=== PATIENT | male | born 1995 | race African-American/Black ===

== ENCOUNTER 2020-07-28 16:45 | Emergency (ER) | payer SELFPAY ==
[~2020-07-28] VITALS: Ht 177.8 cm; Wt 78.0 kg
[2020-07-28 17:34] LABS: HEMATOCRIT. 47.9 % (42.0-52.0); HEMOGLOBIN. 15.6 g/dL (14.0-18.0); MEAN CORPUSCULAR HEMOGLOBIN 30.8 pg (28.0-32.0); MEAN CORPUSCULAR VOLUME 94.4 fL (80.0-94.0); MEAN PLATELET VOLUME 9.3 fl (7.4-10.4); PLATELET 195 x1000/uL (130-400); RED BLOOD CELL COUNT 5.07 mill/uL (4.7-6.1); RED CELL DISTRIBUTION WIDTH 13.9 % (11.6-14.6)
[2020-07-28 17:41] LABS: CHLORIDE 103 mEq/L (98-107)
[2020-07-28 17:46] LABS: ETHANOL BLOOD < 10 mg/dL
[2020-07-28 18:04] LABS: PLATELET ESTIMATE NORMAL
[2020-07-28] MEDS ORDERED: DEXT 5%/0.9% NACL 1,000 ML IV ONE (18:15)
[2020-07-28] MEDS ORDERED: SODIUM CHLORIDE 0.9% 1,000 ML IV ONE (18:15)
[2020-07-28 19:24] LABS: CLARITY URINE CLEAR (CLEAR); COLOR URINE YELLOW (YELLOW); KETONES URINE NEGATIVE (NEGATIVE); LEUKOCYTE ESTERASE URINE NEGATIVE (NEGATIVE); NITRITE URINE NEGATIVE (NEGATIVE); OCCULT BLOOD URINE 1+ (NEGATIVE); PROTEIN URINE TRACE (NEGATIVE); SPECIFIC GRAVITY URINE 1.011 (1.005-1.030); UROBILINOGEN URINE 0.2 E.U./dL (0.2-1.0)
[2020-07-28 19:35] LABS: *BARBITURATES SCREEN URINE NEGATIVE (NEGATIVE); *BENZODIAZEPINES SCREEN URINE NEGATIVE (NEGATIVE)
[2020-07-28 19:36] LABS: *AMPHETAMINES SCREEN URINE NEGATIVE (NEGATIVE); *COCAINE SCREEN URINE NEGATIVE (NEGATIVE); METHADONE URINE SCREEN NEGATIVE (NEGATIVE); OPIATES URINE SCREEN NEGATIVE (NEGATIVE); PHENCYCLIDINE URINE SCREEN NEGATIVE (NEGATIVE)
[2020-07-28 19:37] LABS: CANNABINOID URINE SCREEN PRESUMTIVE POSITIVE (NEGATIVE)
[2020-07-28 23:27] VITALS: BP 118/69
== END 2020-07-28 23:28 | disposition home or self-care (01) ==
LOC: EDBD 16:45 → ER 16:45
DX: T50.911A Poisoning by multiple unspecified drugs, medicaments and biological substances, accidental (unintentional), initial encounter (principal); Y92.9 Unspecified place or not applicable; F19.10 Other psychoactive substance abuse, uncomplicated
CPT/HCPCS: 36415; 80053; 80305; 80307; 80320; 80329; 81003; 84443; 85025; 96360; 99285; J7030; J7042; G0480